=== PATIENT | female | born 1985 | race Caucasian/White ===

== ENCOUNTER 2017-02-04 12:50 | Emergency (ER) | payer MEDICAID, OTHER ==
[~2017-02-04] VITALS: Ht 160 cm; Wt 80.5 kg
[~2017-02-04 12:50] MED LIST: HYDR-3498 PO; NITR-58 PO
[2017-02-04 12:57] VITALS: Ht 160 cm; Wt 80.5 kg
[2017-02-04] MEDS ORDERED: SOD CHLORIDE 0.9% 1,000 ML IV STA (14:09)
[2017-02-04] MEDS ORDERED: ONDANSETRON 4 MG INJ IV STA (14:09)
--- NOTE | 2017-02-04 14:12 | ERA ---
ER Documentation Chief Complaint Date/Time DATE: 02/04/17 TIME: 14:12 Chief Complaint VOMITING DIARRHEA HPI The patient is a 31-year-old female, presenting to the ER because of nausea vomiting and diarrhea and epigastric abdominal pain that began yesterday. She denies hematemesis, hematochezia. She denies fever, chills, neck pain, dysuria , diarrhea. He is 17 weeks , denies any vaginal bleeding or vaginal discharge. She does not smoke, drink, 3 para 2 Past medical/surgical history: None ROS All systems reviewed and are negative except as per history of present illness. Medications Home Meds Active Scripts Nitrofurantoin Monohyd Macrocr* (Macrobid*) 100 Mg Capsr, 100 MG PO HS for 10 Days, CAP Prov:FRANCISCO YEN MD 02/04/17 Hydrocodone Bit-Acetaminophen* ([place]*) 5-325 Mg Tab, 1 TAB PO Q6 Y for PAIN, # 20 TAB Prov:SAURABH NYE DO 05/21/16 Nitrofurantoin Monohyd Macrocr* (Macrobid*) 100 Mg Capsr, 100 MG PO BID for 7 Days, CAP Prov:MARIA DEL CARMEN TA 05/20/16 Allergies Allergies: Coded Allergies: No Known Allergy (Unverified , 05/20/16) PMhx/Soc Hx Alcohol Use: No Hx Substance Use: No Hx Tobacco Use: No Physical Exam Vitals Vital Signs Date Time Temp Pulse Resp B/P Pulse Ox O2 Delivery O2 Flow Rate FiO2 02/04/17 16:44 98.1 67 16 104/64 99 Room Air 02/04/17 12:57 98.9 81 16 141/71 98 Physical Exam Const: No acute distress. Head: Atraumatic. Eyes: Normal Conjunctiva. ENT: Normal External Ears, Nose and Mouth. Neck: Full range of motion. No meningismus. Resp: Clear to auscultation bilaterally. Cardio: Regular rate and rhythm, no murmurs. Abd: Soft, gravid, normal bowel sounds, mild epigastric discomfort, no rigidity, rebound, CVA tenderness Skin: No petechiae or rashes. Back: No midline or flank tenderness. Ext: No cyanosis, or edema. Neur: Awake and alert. No focal deficit Psych: Normal Mood and Affect. Result Diagram: 02/04/17 1446 02/04/17 1446 Results 24 hrs Laboratory Tests Test 02/04/17 14:46 02/04/17 15:27 White Blood Count 7.410^3/ul Red Blood Count 4.5210^6/ul Hemoglobin 12.8g/dl Hematocrit 38.0% Mean Corpuscular Volume 84.1fl Mean Corpuscular Hemoglobin 28.3pg Mean Corpuscular Hemoglobin Concent 33.7g/dl Red Cell Distribution Width 13.0% Platelet Count 30396^3/UL Mean Platelet Volume 11.1fl Neutrophils % 68.4% Lymphocytes % 22.1% Monocytes % 6.5% Eosinophils % 2.3% Basophils % 0.4% Nucleated Red Blood Cells % 0.0/100WBC Neutrophils # 5.010^3/ul Lymphocytes # 1.610^3/ul Monocytes # 0.510^3/ul Eosinophils # 0.210^3/ul Basophils # 0.010^3/ul Nucleated Red Blood Cells # 0.010^3/ul Sodium Level 139mmol/L Potassium Level 3.4mmol/L Chloride Level 101mmol/L Carbon Dioxide Level 24mmol/L Anion Gap 17 Blood Urea Nitrogen 12mg/dl Creatinine 0.73mg/dl Glucose Level 86mg/dl Calcium Level 9.2mg/dl Total Bilirubin 0.4mg/dl Direct Bilirubin 0.00mg/dl Indirect Bilirubin 0.4mg/dl Aspartate Amino Transf (AST/SGOT) 33IU/L Alanine Aminotransferase (ALT/SGPT) 38IU/L Alkaline Phosphatase 72IU/L Total Protein 7.6g/dl Albumin 4.2g/dl Globulin 3.40g/dl Albumin/Globulin Ratio 1.23 Lipase 42U/L Bedside Urine pH (LAB) 5.5 Bedside Urine Protein (LAB) Negative Bedside Urine Glucose (UA) Negative Bedside Urine Ketones (LAB) 2+ Bedside Urine Blood Trace-intact Bedside Urine Nitrite (LAB) Negative Bedside Urine Leukocyte Esterase (L 1+ Current Medications Medications (Trade) Dose Ordered Sig/Katie Route PRN Reason Start Time Stop Time Status Last Admin Dose Admin Sodium Chloride (NS) 1,000 ml @ 1,000 mls/hr Q1H STAT IV 02/04/17 14:09 02/04/17 15:08 DC 02/04/17 14:55 Ondansetron HCl (Zofran Inj) 4 mg ONCE STAT IV 02/04/17 14:09 02/04/17 14:10 DC 02/04/17 14:45 Potassium Chloride (Klor-Con 20) 20 meq ONCE STAT PO 02/04/17 15:34 02/04/17 15:35 DC 02/04/17 16:15 Procedures/MDM [place] [id number] Radiology Main Line: [phone] DIAGNOSTIC IMAGING REPORT Patient: TORRI LACEY : 1985 Age: 31 Sex: F MR #: [id number] DOS: 02/04/17 0000 Ordering MD: FRANCISCO YEN MD Location: [facility] Room/Bed: PROCEDURE: US Abdomen (right upper quadrant). CLINICAL INDICATION: Abdominal pain. TECHNIQUE: Multiple real-time longitudinal and transverse images of the right upper quadrant of the abdomen were acquired utilizing a curved array transducer. Images were reviewed on a high-resolution PACS workstation. COMPARISON: None FINDINGS: The liver is normal in size and echotexture without focal mass or intrahepatic biliary dilatation. There is normal hepatopedal flow within the main portal vein. The gallbladder is well displayed. No filling defects or wall thickening The common bile duct measures 1.9 mm in maximal dimension. The visualized portions of the pancreas are unremarkable with obscuration of the tail of the pancreas. No free fluid is identified. The right kidney measures 11.3 cm in length. There is normal echogenicity within the right kidney. There is no perinephric fluid collection. No hydronephrosis, mass, or calculus is seen. IMPRESSION: 1. Unremarkable right upper quadrant ultrasound. RPTAT: [facility] Physician Angelica Date Time Electronically viewed and signed by Physician Angelica on 02/04/2017 14: 38 JH/ CC: FRANCISCO YEN MD MEDICAL MAKING DECISION: The patient is a 31-year-old female, presenting to the ER because of acute vomiting, diarrhea, acute cystitis, acute hypokalemia. She was treated 1 L normal saline for clinical dehydration, Zofran 4 million, IV for nausea and potassium chloride 20 mEq p.o. with good response. The differential diagnoses considered include but are not limited to cholelithiasis , cholecystitis, cystitis, pancreatitis, hepatitis, gastritis, peptic ulcer disease, gastric ulcer, appendicitis, diverticulitis, cholangitis, choledocholithiasis, partial small bowel obstruction. Departure Diagnosis: Primary Impression: Vomiting and diarrhea Additional Impressions: UTI (urinary tract infection) Hypokalemia Condition: Good Comments She was treated with Macrobid I discussed the findings with the patient. I advised the patient to follow-up with the primary physician in about 1-2 days, sooner if needed and return if any concern. The patient's blood pressure was elevated (>120/80) but appears stable without evidence of hypertension emergency or urgency. The patient was counseled about the risks of hypertension and urged to pursue outpatient monitoring and therapy within a week with their primary care physician. FRANCISCO YEN MD Feb 04, 2017 14:12
--- NOTE | 2017-02-04 14:39 | RADRPT ---
PROCEDURE: US Abdomen (right upper quadrant). CLINICAL INDICATION: Abdominal pain. TECHNIQUE: Multiple real-time longitudinal and transverse images of the right upper quadrant of th e abdomen were acquired utilizing a curved array transducer. Images were reviewed on a high-resoluti on PACS workstation. COMPARISON: None FINDINGS: The liver is normal in size and echotexture without focal mass or intrahepatic biliary dilatation. There is normal hepatopedal flow within the main portal vein. The gallbladder is well displayed. N o filling defects or wall thickening The common bile duct measures 1.9 mm in maximal dimension. Th e visualized portions of the pancreas are unremarkable with obscuration of the tail of the pancreas. No free fluid is identified. The right kidney measures 11.3 cm in length. There is normal echogenicity within the right kidney. There is no perinephric fluid collection. No hydronephrosis, mass, or calculus is seen. IMPRESSION: 1. Unremarkable right upper quadrant ultrasound. RPTAT: [facility] Physician Angelica Date Time Electronically viewed and signed by Physician Angelica on 02/04/2017 14:38 MABLE/
[2017-02-04 14:54] LABS: ADD SCAN DIFF NO
[2017-02-04 14:56] LABS: BASOPHILS % 0.4 % (0.0-2.0); EOSINOPHILS # 0.2 10^3/ul (0.0-0.5); EOSINOPHILS % 2.3 % (0.0-7.0); HEMOGLOBIN 12.8 g/dl (12.0-16.0); LYMPHOCYTES # 1.6 10^3/ul (0.8-2.9); LYMPHOCYTES % 22.1 % (15.0-51.0); MEAN CORPUSCULAR HEMOGLOBIN 28.3 pg (29.0-33.0); MEAN CORPUSCULAR HGB CONC 33.7 g/dl (32.0-37.0); MEAN CORPUSCULAR VOLUME 84.1 fl (82.0-101.0); MEAN PLATELET VOLUME 11.1 fl (7.4-10.4); MONOCYTE # 0.5 10^3/ul (0.3-0.9); MONOCYTES % 6.5 % (0.0-11.0); NEUTROPHILS % 68.4 % (39.0-77.0); PLATELET COUNT 251 10^3/UL (140-415); RED BLOOD COUNT 4.52 10^6/ul (4.20-5.40); WHITE BLOOD COUNT 7.4 10^3/ul (4.8-10.8)
[2017-02-04 15:03] LABS: ALBUMIN 4.2 g/dl (3.3-4.9)
[2017-02-04 15:04] LABS: POTASSIUM 3.4 mmol/L (3.5-5.1)
[2017-02-04 15:06] LABS: ALBUMIN/GLOBULIN RATIO 1.23; BILIRUBIN,INDIRECT 0.4 mg/dl (0-1.1); BILIRUBIN,TOTAL 0.4 mg/dl (0.2-1.3); CREATININE 0.73 mg/dl (0.44-1.00); TOTAL PROTEIN 7.6 g/dl (6.1-8.1)
[2017-02-04 15:07] LABS: CALCIUM 9.2 mg/dl (8.4-10.2)
[2017-02-04 15:27] LABS: URINE BLOOD (Dip) POC Trace-intact (NEGATIVE)
[2017-02-04] MEDS ORDERED: POTASSIUM CHLORIDE (SR) 20 MEQ TAB PO STA (15:34)
[2017-02-04] MEDS ORDERED: NITR-58 PO (15:35)
[2017-02-04 16:44] VITALS: BP 104/64; PULSE 67; RESP 16; TEMP 98.1
== END 2017-02-04 16:45 | disposition home or self-care (01) ==
LOC: FTE 12:50
DX: O21.9 Vomiting of pregnancy, unspecified (principal); O99.89 Other specified diseases and conditions complicating pregnancy, childbirth and the puerperium; R19.7 Diarrhea, unspecified; E87.6 Hypokalemia; O99.282 Endocrine, nutritional and metabolic diseases complicating pregnancy, second trimester; O23.12 Infections of bladder in pregnancy, second trimester; Z3A.17 17 weeks gestation of pregnancy
CPT/HCPCS: 36415; 76705; 80053; 81003; 83690; 85025; 96374; J2405; J7030; Z7502; Z7610

== ENCOUNTER 2017-02-23 19:13 | Emergency (ER) | payer OTHER ==
[~2017-02-23] VITALS: Ht 162.6 cm; Wt 80.5 kg
[2017-02-23 19:29] VITALS: Ht 162.6 cm; Wt 80.5 kg
--- NOTE | 2017-02-23 20:59 | ERD ---
ER Documentation Chief Complaint Date/Time DATE: 02/23/17 TIME: 20:55 Chief Complaint vaginal bleeding x 1day, 8 weeks , has appt for d&c 02/28/17 HPI 31-year-old female presents with chief complaint of mild vaginal bleeding 1 day, she states that she is 8 weeks . She also complains of dysuria and low back pain. She denies fevers, chills, nausea/vomiting, and diarrhea. She states that her last ultrasound was on Friday, which showed no heart tones and her beta hCG was lower than normal per dates. Her [employer] physician is Dr. Hunter. She does not have results of her previous lab work or ultrasound with her. She currently rates her pain a 5 out of 10 in severity , has not taken any medications for relief of pain. ROS All systems reviewed and are negative except as per history of present illness. Medications Home Meds Active Scripts Nitrofurantoin Monohyd Macrocr* (Macrobid*) 100 Mg Capsr, 100 MG PO BID for 5 Days, #10 CAP Prov:Yudelka Titus PA-C 02/23/17 Ibuprofen* (Motrin*) 600 Mg Tab, 600 MG PO Q6, #30 TAB Prov:Yudelka Titus PA-C 02/23/17 Hydrocodone/Acetaminophen ([place] 5-325 Tablet) 1 Each Tablet, 1 TAB PO Q6H Y for PAIN, #20 TAB Prov:Yudelka Titus PA-C 02/23/17 Nitrofurantoin Monohyd Macrocr* (Macrobid*) 100 Mg Capsr, 100 MG PO HS for 10 Days, CAP Prov:FRANCISCO YEN MD 02/04/17 Hydrocodone Bit-Acetaminophen* ([place]*) 5-325 Mg Tab, 1 TAB PO Q6 Y for PAIN, # 20 TAB Prov:SAURABH NYE DO 05/21/16 Nitrofurantoin Monohyd Macrocr* (Macrobid*) 100 Mg Capsr, 100 MG PO BID for 7 Days, CAP Prov:MARIA DEL CARMEN TA 05/20/16 Allergies Allergies: Coded Allergies: No Known Allergy (Unverified , 02/23/17) PMhx/Soc Medical and Surgical Hx: pt denies Medical Hx, pt denies Surgical Hx Hx Alcohol Use: No Hx Substance Use: No Hx Tobacco Use: No Physical Exam Vitals Vital Signs Date Time Temp Pulse Resp B/P Pulse Ox O2 Delivery O2 Flow Rate FiO2 02/23/17 19:29 98.6 63 20 136/69 98 Physical Exam GENERAL: Non-toxic. No apparent signs of distress. LUNGS: Clear to auscultation. No accessory muscle use. No wheezing, no crackles. No signs or symptoms of respiratory distress. HEART: Regular rate and rhythm. No murmurs, clicks, rubs or gallops. ABDOMEN: Soft, nontender and nondistended. Bowel sounds positive. No rebound or guarding. No gross peritoneal signs. No Reis or McBurney point tenderness. No gross masses. No adnexal tenderness or suprapubic tenderness. BACK: No midline tenderness, no costovertebral tenderness. EXTREMITIES: No peripheral cyanosis or edema. No focal pain or notable trauma. Full range of motion. Good capillary refill. NEURO: The patient moves all 4 extremities with 5/5 strength. Cranial nerves are grossly intact. Normal mental status for age. Good muscle tone. SKIN: There is no apparent rash, petechiae, erythema or swelling. Good skin turgor. Result Diagram: 02/23/172054 Results 24 hrs Laboratory Tests Test 02/23/17 20:55 White Blood Count 11.310^3/ul Red Blood Count 4.3110^6/ul Hemoglobin 12.2g/dl Hematocrit 36.7% Mean Corpuscular Volume 85.2fl Mean Corpuscular Hemoglobin 28.3pg Mean Corpuscular Hemoglobin Concent 33.2g/dl Red Cell Distribution Width 13.0% Platelet Count 44563^3/UL Mean Platelet Volume 11.5fl Neutrophils % 54.6% Lymphocytes % 33.9% Monocytes % 5.9% Eosinophils % 4.6% Basophils % 0.7% Nucleated Red Blood Cells % 0.0/100WBC Neutrophils # 6.210^3/ul Lymphocytes # 3.810^3/ul Monocytes # 0.710^3/ul Eosinophils # 0.510^3/ul Basophils # 0.110^3/ul Nucleated Red Blood Cells # 0.010^3/ul Urine Color LT. YELLOW Urine Clarity CLEAR Urine pH 5.5 Urine Specific Richardson <=1.005 Urine Ketones NEGATIVE Urine Nitrite NEGATIVE Urine Bilirubin NEGATIVE Urine Urobilinogen 0.2 E.U./dL Urine Leukocyte Esterase 1+ Urine Microscopic RBC 0-2/HPF Urine Microscopic WBC 2-5/HPF Urine Squamous Epithelial Cells MODERATE Urine Hemoglobin 2+ Urine Glucose NEGATIVE% Urine Total Protein NEGATIVE Beta HCG, Quantitative 27913.0mIU/ml Current Medications Medications (Trade) Dose Ordered Sig/Katie Route PRN Reason Start Time Stop Time Status Last Admin Dose Admin Acetaminophen/ Hydrocodone Bitart ([place] (5/325)) 1 tab ONCE ONCE PO 02/23/17 23:00 02/23/17 23:01 02/23/17 22:56 Procedures/MDM Patient was complain of mild vaginal bleeding 1 day. States that her last ultrasound was on Friday with her [employer] doctor, . She states that at that visit she was told that there were no heart tones on the ultrasound and that her beta hCG quant was lower than it should be per her dates. She reports low back pain, however has no CVA tenderness on exam. She also reports mild dysuria. Denies fevers and chills, is afebrile at this time and appears to be in no acute distress.I explained to the patient that we need to do a vaginal bleeding workup, and either way she will likely need to follow- up with her [employer] physician as she does not have results of previous hCG quant and there is no way for us to compare whether this value is going up or down. Awaiting results of workup prior to further management. CBC: Mild leukocytosis, likely due to UTI. No left shift. No anemia. Beta hCG quant:31, 581. Consistent with dates. Rh factor: O+, RhoGam is not needed. UA: 1+ leukocyte esterase, negative nitrite. Will be treating for UTI. First trimester ultrasound: IMPRESSION: 1. Single intrauterine gestation of approximately 7 weeks 2 days without cardiac activity compatible with early failed . Clinical correlation is necessary. 2. The left ovary was not visualized. Explained the ultrasound results and workup with patient. I explained that since I have nothing to compare her beta quant with she will need to follow-up with her [employer] in 48 hours for repeat beta quant, pending her lab results so she may show them to him for comparison. I explained that ultrasound is consistent with inevitable due to no cardiac activity. However the pregnancies intrauterine and she was put gestational sac and yolk sac and therefore ectopic is ruled out. At this time low suspicion for ectopic , PID, septic , completed , molar , and pyelonephritis. Patient still for discharge and outpatient management. Advised to follow-up with [employer] in 48 hours. Departure Diagnosis: Primary Impression: Vaginal bleeding in patient at less than 20 weeks gestation Additional Impressions: demise Inevitable UTI (urinary tract infection) Urinary tract infection type: site unspecified Hematuria presence: with hematuria Qualified Code: N39.0 - Urinary tract infection with hematuria, site unspecified Condition: Yudelka Corcoran PA-C Feb 23, 2017 20:59
[2017-02-23 21:27] LABS: ADD SCAN DIFF NO
[2017-02-23 21:29] LABS: BASOPHIL # 0.1 10^3/ul (0.0-0.1); BASOPHILS % 0.7 % (0.0-2.0); EOSINOPHILS # 0.5 10^3/ul (0.0-0.5); EOSINOPHILS % 4.6 % (0.0-7.0); HEMATOCRIT 36.7 % (37.0-47.0); HEMOGLOBIN 12.2 g/dl (12.0-16.0); LYMPHOCYTES # 3.8 10^3/ul (0.8-2.9); LYMPHOCYTES % 33.9 % (15.0-51.0); MEAN CORPUSCULAR HEMOGLOBIN 28.3 pg (29.0-33.0); MEAN CORPUSCULAR HGB CONC 33.2 g/dl (32.0-37.0); MEAN CORPUSCULAR VOLUME 85.2 fl (82.0-101.0); MEAN PLATELET VOLUME 11.5 fl (7.4-10.4); MONOCYTE # 0.7 10^3/ul (0.3-0.9); MONOCYTES % 5.9 % (0.0-11.0); NEUTROPHIL # 6.2 10^3/ul (1.6-7.5); NEUTROPHILS % 54.6 % (39.0-77.0); PLATELET COUNT 239 10^3/UL (140-415); RED BLOOD COUNT 4.31 10^6/ul (4.20-5.40); WHITE BLOOD COUNT 11.3 10^3/ul (4.8-10.8)
[2017-02-23 21:37] LABS: ADD UMIC YES; URINE BILIRUBIN (Dip) NEGATIVE (NEGATIVE); URINE BLOOD (Dip) 2+ (NEGATIVE); URINE COLOR LT. YELLOW (YELLOW); URINE GLUCOSE (Dip) NEGATIVE (NEGATIVE); URINE KETONES (Dip) NEGATIVE (NEGATIVE); URINE LEUKOCYTE ESTERASE (Dip) 1+ (NEGATIVE); URINE NITRITE (Dip) NEGATIVE (NEGATIVE); URINE TOTAL PROTEIN (Dip) NEGATIVE (NEGATIVE); URINE UROBILINOGEN (Dip) 0.2 E.U./dL (0.1-1.0)
[2017-02-23 21:46] LABS: SQUAMOUS EPITHELIAL CELL,UR MODERATE; URINE RBCS 0-2 /HPF (0)
--- NOTE | 2017-02-23 22:44 | RADRPT ---
PROCEDURE: ULTRASOUND OBSTETRICAL CLINICAL INDICATION: 31-year-old female with vaginal bleeding. TECHNIQUE: Multiple sonographic images of the pelvis were obtained. The images were reviewed on a PACS workstation. COMPARISON: None. FINDINGS: The uterus is visualized and measures 9.8 x 7.5 x 7.1 cm. There is a single intrauterine gestation. The mean sac diameter is 2.61 cm. There is a yolk sac identified. There is a pole present wi th a crown-rump length of 0.86 cm. This yields an estimated gestational age of 7 weeks and 2 days. T he estimated date of delivery is October 10, 2017. There is no evidence for cardiac activity. There is no evidence for free fluid. The right ovary has a normal echotexture and measures 3.7 x 2.4 x 2 .1 cm. There is normal flow to the right ovary. The left ovary was not visualized. No adnexal mas ses are noted. IMPRESSION: 1. Single intrauterine gestation of approximately 7 weeks 2 days without cardiac activity compatibl e with early failed . Clinical correlation is necessary. 2. The left ovary was not visualized. .Jaxon Ellis MD, MD Date Time Electronically viewed and signed by .Jaxon Ellis MD, on 02/23/2017 22:43 .M/
[2017-02-23] MEDS ORDERED: IBUP-1542 PO (22:52)
[2017-02-23] MEDS ORDERED: HYDR-906 PO (22:52)
[2017-02-23] MEDS ORDERED: NITR-58 PO (22:55)
[2017-02-23] MEDS ORDERED: HYDROCODONE/APAP (5/325) TAB PO ONE (23:00)
== END 2017-02-23 23:06 | disposition home or self-care (01) ==
LOC: FTE 19:13
DX: O02.1 Missed abortion (principal); O23.41 Unspecified infection of urinary tract in pregnancy, first trimester
CPT/HCPCS: 36415; 76801; 81001; 84702; 85025; 86900; 86901; Z7502; Z7610; 81003

== ENCOUNTER 2018-01-22 21:48 | Emergency (ER) | END 2018-01-22 23:48 | disposition home or self-care (01) ==

== ENCOUNTER 2019-05-30 18:17 | Emergency (ER) | payer OTHER ==
[~2019-05-30] VITALS: Ht 162.6 cm; Wt 84.4 kg
[~2019-05-30 18:17] MED LIST changes: +AZIT250T PO; +GUAI-173 PO; +HYDR-4011 PO; +IBUP-1542 PO; +MED4DP PO
[2019-05-30 18:28] VITALS: Ht 162.6 cm; Wt 84.4 kg
[2019-05-30] MEDS ORDERED: CEPH-443 PO (20:48)
--- NOTE | 2019-05-30 20:50 | ERD ---
ER Documentation Chief Complaint Chief Complaint VAG BLEED , ONSET TODAY , 8 WEEKS PREG , BACK PAIN , LEG PAIN HPI 33-year-old female presents with some spotting when she wiped today. She states that she is approximately 8 weeks by dates. She has mild low back pain. She denies dysuria, fevers, vomiting, abdominal pain. She is a G5 para 2. ROS All systems reviewed and are negative except as per history of present illness. Medications Home Meds Active Scripts Cephalexin* (Keflex*) 500 Mg Capsule, 500 MG PO QID for 5 Days, CAP Prov:MACHO MEDEROS MD 05/30/19 Guaifenesin* (Tussin*) 100 Mg/5 Ml Syrup, 200 MG PO Q6 PRN for COUGH for 3 Days, ML Prov:MARIA DEL CARMEN TA 01/22/18 Methylprednisolone* (Medrol* DOSE PACK) 4 Mg/Dose-Pack Tab.ds.pk, 4 MG PO . DIRECTED for 6 Days, PACKET Prov:MARIA DEL CARMEN TA 01/22/18 Azithromycin* (Zithromax*) 250 Mg Tablet, 250 MG PO .ZPACK DIRECTED, #6 TAB TAKE 500 MG (2 TABS) THE FIRST DAY THEN 250 MG (1 TAB) DAYS 2-5 Prov:MARIA DEL CARMEN TA 01/22/18 Nitrofurantoin Monohyd Macrocr* (Macrobid*) 100 Mg Capsr, 100 MG PO BID for 5 Days, #10 CAP Prov:Yudelka Titus PA-C 02/23/17 Ibuprofen* (Motrin*) 600 Mg Tab, 600 MG PO Q6, #30 TAB Prov:Yudelka Titus PA-C 02/23/17 Hydrocodone/Acetaminophen ([place] 5-325 Tablet) 1 Each Tablet, 1 TAB PO Q6H PRN for PAIN, #20 TAB Prov:Yudelka Titus PA-C 02/23/17 Nitrofurantoin Monohyd Macrocr* (Macrobid*) 100 Mg Capsr, 100 MG PO HS for 10 Days, CAP Prov:FRANCISCO YEN MD 02/04/17 Hydrocodone Bit-Acetaminophen* ([place]*) 5-325 Mg Tab, 1 TAB PO Q6 PRN for PAIN, #20 TAB Prov:SAURABH NYE DO 05/21/16 Nitrofurantoin Monohyd Macrocr* (Macrobid*) 100 Mg Capsr, 100 MG PO BID for 7 Days, CAP Prov:MARIA DEL CARMEN TA 05/20/16 Allergies Allergies: Coded Allergies: No Known Allergy (Unverified , 02/23/17) PMhx/Soc Medical and Surgical Hx: pt denies Medical Hx, pt denies Surgical Hx Hx Alcohol Use: No Hx Substance Use: No Hx Tobacco Use: No Smoking Status: Never smoker FmHx Family History: No diabetes, No coronary disease, No other Physical Exam Vitals Vital Signs Date Temp Pulse Resp B/P (MAP) Pulse Ox O2 O2 Flow FiO2 Time Delivery Rate 05/30/19 97.9 66 18 139/79 99 18:28 (99) Physical Exam Const: No acute distress Head: Atraumatic Eyes: Normal Conjunctiva ENT: Normal External Ears, Nose and Mouth. Neck: Full range of motion. No meningismus. Resp: Clear to auscultation bilaterally Cardio: Regular rate and rhythm, no murmurs Abd: Soft, non tender, non distended. Normal bowel sounds Skin: No petechiae or rashes Back: No midline or flank tenderness Ext: No cyanosis, or edema Neur: Awake and alert Psych: Normal Mood and Affect Result Diagram: 05/30/191947 Results 24 hrs Laboratory Tests Test 05/30/19 19:48 White Blood Count 8.9 10^3/ul Red Blood Count 4.46 10^6/ul Hemoglobin 12.6 g/dl Hematocrit 38.4 % Mean Corpuscular Volume 86.1 fl Mean Corpuscular Hemoglobin 28.3 pg Mean Corpuscular Hemoglobin Concent 32.8 g/dl Red Cell Distribution Width 13.1 % Platelet Count 261 10^3/UL Mean Platelet Volume 10.7 fl Immature Granulocytes % 0.200 % Neutrophils % 54.7 % Lymphocytes % 35.3 % Monocytes % 7.2 % Eosinophils % 2.0 % Basophils % 0.6 % Nucleated Red Blood Cells % 0.0 /100WBC Immature Granulocytes # 0.020 10^3/ul Neutrophils # 4.8 10^3/ul Lymphocytes # 3.1 10^3/ul Monocytes # 0.6 10^3/ul Eosinophils # 0.2 10^3/ul Basophils # 0.1 10^3/ul Nucleated Red Blood Cells # 0.0 10^3/ul Urine Color YELLOW Urine Clarity CLOUDY Urine pH 7.0 Urine Specific Lucas 1.003 Urine Ketones NEGATIVE mg/dL Urine Nitrite NEGATIVE mg/dL Urine Bilirubin NEGATIVE mg/dL Urine Urobilinogen NEGATIVE mg/dL Urine Leukocyte Esterase 2+ Luz Elena/ul Urine Microscopic RBC 3 /HPF Urine Microscopic WBC 21 /HPF Urine Squamous Epithelial Cells MANY /HPF Urine Bacteria FEW /HPF Urine Mucus FEW /HPF Urine Hemoglobin 3+ mg/dL Urine Glucose NEGATIVE mg/dL Urine Total Protein NEGATIVE mg/dl Beta HCG, Quantitative 5329.6 mIU/ml Procedures/MDM hCG is 5329. Patient is Rh+. Pelvic ultrasound shows gestational sac and yolk sac without visualized pole. Patient refused transvaginal exam. is approximately 6 weeks. Patient stable throughout the ER course. Patient presents with vaginal spotting, and no signs of UTI on urinalysis. Will treat with Keflex, recommendations for OB follow-up this week and return precautions for worsening bleeding, pain, fevers, new worsening symptoms. Presence of yolk sac suggests no ectopic although close follow-up advised. She has no signs to suggest appendicitis, surgical abdomen. The patient was stable with no new complaints during the ER course. Clinically, there is no current evidence to suggest meningitis, sepsis, acute abdomen, pneumonia, stroke, acute coronary syndrome, pulmonary embolism, aortic dissection or any other emergent condition appearing to require further evaluation or hospitalization. Patient counseled regarding my diagnostic impression and care plan. Prior to discharge all questions answered. Pt agrees with treatment plan and understands strict return precautions. Pt is instructed to follow up with primary care provider within 24-48 hours. Precautionary instructions provided including instructions to return to the ER if not improving or for any worsening or changing symptoms or concerns. Disclaimer: Inadvertent spelling and grammatical errors are likely due to EHR/dictation software use and do not reflect on the overall quality of patient care. Also, please note that the electronic time recorded on this note does not necessarily reflect the actual time of the patient encounter. Departure Diagnosis: Primary Impression: UTI (urinary tract infection) Urinary tract infection type: acute cystitis Hematuria presence: without hematuria Qualified Codes: N30.00 - Acute cystitis without hematuria Additional Impression: Vaginal bleeding in patient at less than 20 weeks ges... Condition: Stable Patient Instructions: Understanding Urinary Tract Infections (UTIs), Bleeding During Early Additional Instructions: hay un emabarzo 6 semanas. es muy temprano bobby taylor normal horita. hay infeccion en orina y vamos a tratar.. MACHO MEDEROS MD May 30, 2019 20:50
[2019-05-30 21:45] VITALS: BP 124/68; PULSE 66; RESP 18
== END 2019-05-30 21:45 | disposition home or self-care (01) ==
LOC: FTE 18:17
DX: O23.41 Unspecified infection of urinary tract in pregnancy, first trimester (principal); O20.9 Hemorrhage in early pregnancy, unspecified; Z3A.01 Less than 8 weeks gestation of pregnancy
CPT/HCPCS: 36415; 76801; 81001; 84702; 85025; 86900; 86901; Z7502

== ENCOUNTER 2019-06-01 17:39 | Emergency (ER) | payer OTHER ==
[~2019-06-01] VITALS: Ht 165.1 cm; Wt 84.4 kg
[~2019-06-01 17:39] MED LIST changes: +CEPH-443 PO
[2019-06-01 17:49] VITALS: Ht 165.1 cm; Wt 84.4 kg
--- NOTE | 2019-06-01 18:18 | ERD ---
ER Documentation Chief Complaint Chief Complaint vaginal spotting HPI The patient is a 33-year-old female, presenting to the ER because of recurrent vaginal spotting at 3 pm. She was seen in the ER 2 days ago, had an ultrasound that showed 6 weeks and 0-day IUP, blood type is O+, beta hCG is 5,329. She denies syncope, near syncope, weakness, dizziness, neck pain, chest pain, dyspnea, abdominal pain, vomiting, dysuria. She does not smoke nor drink. She is 5 para 2 2 Medical/surgical history: None ROS All systems reviewed and are negative except as per history of present illness. Medications Home Meds Active Scripts Cephalexin* (Keflex*) 500 Mg Capsule, 500 MG PO QID for 5 Days, CAP Prov:MACHO MEDEROS MD 05/30/19 Guaifenesin* (Tussin*) 100 Mg/5 Ml Syrup, 200 MG PO Q6 PRN for COUGH for 3 Days, ML Prov:MARIA DEL CARMEN TA 01/22/18 Methylprednisolone* (Medrol* DOSE PACK) 4 Mg/Dose-Pack Tab.ds.pk, 4 MG PO . DIRECTED for 6 Days, PACKET Prov:MARIA DEL CARMEN TA 01/22/18 Azithromycin* (Zithromax*) 250 Mg Tablet, 250 MG PO .ZPACK DIRECTED, #6 TAB TAKE 500 MG (2 TABS) THE FIRST DAY THEN 250 MG (1 TAB) DAYS 2-5 Prov:MARIA DEL CARMEN TA 01/22/18 Nitrofurantoin Monohyd Macrocr* (Macrobid*) 100 Mg Capsr, 100 MG PO BID for 5 Days, #10 CAP Prov:Yudelka TitusC 02/23/17 Ibuprofen* (Motrin*) 600 Mg Tab, 600 MG PO Q6, #30 TAB Prov:Yudelka Titus-C 02/23/17 Hydrocodone/Acetaminophen (Talbott 5-325 Tablet) 1 Each Tablet, 1 TAB PO Q6H PRN for PAIN, #20 TAB Prov:Yudelka Titus-C 02/23/17 Nitrofurantoin Monohyd Macrocr* (Macrobid*) 100 Mg Capsr, 100 MG PO HS for 10 Days, CAP Prov:FRANCISCO YEN MD 02/04/17 Hydrocodone Bit-Acetaminophen* (Talbott*) 5-325 Mg Tab, 1 TAB PO Q6 PRN for PAIN, #20 TAB Prov:SAURABH NYE DO 05/21/16 Nitrofurantoin Monohyd Macrocr* (Macrobid*) 100 Mg Capsr, 100 MG PO BID for 7 Days, CAP Prov:MARIA DEL CARMEN TA 05/20/16 Allergies Allergies: Coded Allergies: No Known Allergy (Unverified , 02/23/17) PMhx/Soc Hx Alcohol Use: No Hx Substance Use: No Hx Tobacco Use: No Physical Exam Vitals Vital Signs Date Temp Pulse Resp B/P (MAP) Pulse Ox O2 O2 Flow FiO2 Time Delivery Rate 06/01/19 98.1 65 16 124/60 99 Room Air 23:22 (81) 06/01/19 98.2 70 18 142/62 97 17:49 (88) Physical Exam Const: No acute distress. Head: Atraumatic. Eyes: Normal Conjunctiva. ENT: Normal External Ears, Nose and Mouth. Neck: Full range of motion. No meningismus. Resp: Clear to auscultation bilaterally. Cardio: Regular rate and rhythm. Abd: Soft, non distended, normal bowel sounds, non tender. Skin: No petechiae or rashes. Back: No midline or flank tenderness. Ext: No cyanosis, or edema. Neur: Awake and alert. No focal deficit Psych: Normal Mood and Affect. Results 24 hrs Laboratory Tests Test 06/01/19 18:38 Beta HCG, Quantitative 3839.2 mIU/ml Procedures/[place] [id number] Radiology Main Line: [phone] DIAGNOSTIC IMAGING REPORT Patient: TORRI LACEY : 1985 Age: 33 Sex: F MR #: [id number] DOS: 06/01/19 0000 Ordering MD: FRANCISCO YEN MD Location: [facility] Room/Bed: PROCEDURE: US Pelvis. CLINICAL INDICATION: vaginal bleeding TECHNIQUE: Multiple sonographic images of the pelvis were obtained utilizing a transabdominal technique. The images were reviewed on a PACS workstation. COMPARISON: US PELVIS 05/30/2019 FINDINGS: The uterus is normal in size and demonstrates a normal appearance of the myometrium. The uterus measures 9.3 x 5.8 x 5.0 cm in size. The endometrial stripe is heterogeneous in appearance and has the thickness of 21 mm. There is evidence of increased vascularity. Previously seen gestational sac is no longer visualized. The right ovary is normal and measures 3.0 x 2.1 x 3.0 cm. The left ovary was not seen.. No free fluid is present within the pelvis.. RPTAT: AA IMPRESSION: Previously seen gestational sac is no longer visualized. The findings likely represent an in progress. Heterogeneous and thickened endometrium with evidence of increased vascularity, suspicious for retained products of conception. Follow-up ultrasound and HCG levels is recommended. .Wes Moreland MD, MD Date Time Electronically viewed and signed by .Wes Moreland MD, on 06/01/2019 19:09 .S/ CC: FRANCISCO YEN MD [phone] Consultation: I discussed the patient with the on-call granite setter Dr. Hunter who came down to over the patient and recommended to discharge the patient MEDICAL MAKING DECISION: The patient is presenting with acute incomplete , seen by granite setter and recommended discharging The differential diagnoses considered include but are not limited to spontaneous , incomplete , endometritis , ectopic Departure Diagnosis: Primary Impression: Incomplete Condition: Good Comments I discussed the findings with the patient. I advised the patient to follow-up with Dr Hunter in about 1-2 days, sooner if needed and return if any concern. Disclaimer: Inadvertent spelling and grammatical errors are likely due to EHR/dictation software use and do not reflect on the overall quality of patient care. Also, please note that the electronic time recorded on this note does not necessarily reflect the actual time of the patient encounter. FRANCISCO YEN MD Jun 01, 2019 18:18
--- NOTE | 2019-06-01 22:37 | CONS ---
Assessment/Plan Assessment/Plan Assessment/Plan (Daily) Spontaneous D/C home Follow up in clinic for serial hCG. Consultation Date/Type/Reason Admit Date/Time Date of Consultation: Jun 01, 2019 Type of Consult Gynecology Reason for Consultation vaginal bleeding Requesting Provider: FRANCISCO YEN MD Date/Time of Note DATE: 06/01/19 TIME: 22:29 Hx of Present Illness Patient with vaginal bleeding. Patient was seen in ED on 05/30/2019 and OB ultrasound revealed a gestational sac and no pole. Patient now presents with passage of tissue. Constitutional: no complaints, improved Eyes: no complaints ENT: no complaints Respiratory: no complaints Cardiovascular: no complaints Gastrointestinal: no complaints Genitourinary: bleeding Musculoskeletal: no complaints Skin: no complaints Neurologic: no complaints Endocrine: no complaints Lymphatic: no complaints Psychological: no complaints, nl mood/affect Immunologic: no complaints Past Medical History Medical History: no pertinent history Home Meds Active Scripts Cephalexin* (Keflex*) 500 Mg Capsule, 500 MG PO QID for 5 Days, CAP Prov:MACHO MEDEROS MD 05/30/19 Guaifenesin* (Tussin*) 100 Mg/5 Ml Syrup, 200 MG PO Q6 PRN for COUGH for 3 Days, ML Prov:MARIA DEL CARMEN TA 01/22/18 Methylprednisolone* (Medrol* DOSE PACK) 4 Mg/Dose-Pack Tab.ds.pk, 4 MG PO . DIRECTED for 6 Days, PACKET Prov:MARIA DEL CARMEN TA 01/22/18 Azithromycin* (Zithromax*) 250 Mg Tablet, 250 MG PO .ZPACK DIRECTED, #6 TAB TAKE 500 MG (2 TABS) THE FIRST DAY THEN 250 MG (1 TAB) DAYS 2-5 Prov:MARIA DEL CARMEN TA C 01/22/18 Nitrofurantoin Monohyd Macrocr* (Macrobid*) 100 Mg Capsr, 100 MG PO BID for 5 Days, #10 CAP Prov:Yudelka Titus-C 02/23/17 Ibuprofen* (Motrin*) 600 Mg Tab, 600 MG PO Q6, #30 TAB Prov:Yudelka Titus PA-C 02/23/17 Hydrocodone/Acetaminophen (B[place]ant 5-325 Tablet) 1 Each Tablet, 1 TAB PO Q6H PRN for PAIN, #20 TAB Prov:Yudelka Titus PA-C 02/23/17 Nitrofurantoin Monohyd Macrocr* (Macrobid*) 100 Mg Capsr, 100 MG PO HS for 10 Days, CAP Prov:FRANCISCO YEN MD 02/04/17 Hydrocodone Bit-Acetaminophen* (Bryant*) 5-325 Mg Tab, 1 TAB PO Q6 PRN for PAIN, #20 TAB Prov:PARRISNAYABELIA MCKEON 05/21/16 Nitrofurantoin Monohyd Macrocr* (Macrobid*) 100 Mg Capsr, 100 MG PO BID for 7 Days, CAP Prov:MARIA DEL CARMEN TA 05/20/16 Allergies: Coded Allergies: No Known Allergy (Unverified , 02/23/17) Family History Significant Family History: no pertinent family hx Social History Smoking Status: Never smoker Exam/Review of Systems Exam Vitals Vital Signs Date Temp Pulse Resp B/P (MAP) Pulse Ox O2 O2 Flow FiO2 Time Delivery Rate 06/01/19 98.2 70 18 142/62 97 17:49 (88) Constitutional: alert, oriented, well developed Psych: no complaints, nl mood/affect Head: normocephalic, atraumatic Respiratory: clear to auscultation, normal air movement Cardiovascular: regular rate and rhythm, nl pulses Gastrointestinal: soft, nl liver, spleen, non-tender Musculoskeletal: nl extremities to inspection, nl gait and stance Neurological: [employer] II-XII intact, nl mental status, nl speech, nl strength Additional Comments Cervix is closed, no active bleeding Results Results 24hrs Laboratory Tests Test 06/01/19 18:38 Beta HCG, Quantitative 3839.2 Imaging Imaging OB ultrasound gestational sac no longer seen JAKOB SHARP MD Jun 01, 2019 22:37
[2019-06-01 23:22] VITALS: BP 124/60; PULSE 65; RESP 16
== END 2019-06-01 23:23 | disposition home or self-care (01) ==
LOC: FTE 17:39
DX: O03.30 Unspecified complication following incomplete spontaneous abortion (principal)
CPT/HCPCS: 76801; 84702